=== PATIENT | female | born 1955 | race Caucasian/White ===

== ENCOUNTER 2016-06-27 10:05 | Emergency (ER) | payer OTHER, BC ==
[2016-06-27 10:17] VITALS: BMI 34.1
[2016-06-27] MEDS ORDERED: ONDANSETRON 4 MG/2 ML VIAL IVPB ONE (10:29)
[2016-06-27] MEDS ORDERED: ONDANSETRON 4 MG/2 ML VIAL ONE (10:29)
[2016-06-27 10:50] LABS: URINE BILIRUBIN Negative (NEGATIVE); URINE BLOOD Negative (NEGATIVE); URINE GLUCOSE (UA) Negative (NEGATIVE); URINE KETONE Negative (NEGATIVE); URINE NITRITE Negative (NEGATIVE); URINE PROTEIN Negative (NEGATIVE); URINE UROBILINOGEN 0.2 E.U/dl (0.2-1.0)
[2016-06-27 10:52] LABS: BASOPHIL 0.2 % (0-2.0); EOSINOPHIL 1.8 % (0-4.5); MCH 29.2 pg (25.7-33.7); MCHC 33.9 g/dl (32.0-36.0); MEAN CELL VOLUME 86.3 fl (80-96); MEAN PLT VOLUME 8.3 fl (7.5-11.1); NEUTROPHILS 63.9 % (42.8-82.8); PLATELET COUNT 177 K/MM3 (134-434); RDW 13.9 % (11.6-15.6); WHITE BLOOD COUNT 6.4 K/mm3 (4.0-10.0)
[2016-06-27 10:53] LABS: ALBUMIN 4.2 g/dl (3.5-5.0); ALK PHOS 80 U/L (32-92); ANION GAP 6 (8-16); BILIRUBIN,TOTAL 0.8 mg/dl (0.2-1.0); CALCIUM 10.4 mg/dl (8.4-10.2); CO2 22 mmol/L (22-28); CPK(DFH) 31 IU/L (26-140); CREATININE 0.8 mg/dl (0.6-1.3); GLUCOSE,RANDOM 111 mg/dl (74-106); SGOT/AST 27 U/L (10-42); SGPT/ALT 22 U/L (10-40); TOT PROT 7.8 g/dl (6.4-8.3)
[2016-06-27 10:56] LABS: URINE APPEARANCE SL CLOUDY; URINE COLOR YELLOW; URINE LEUK ESTERASE 1+ (NEGATIVE)
[2016-06-27] MEDS ORDERED: FAMOTIDINE 20 MG/50 ML IVPB 50 ML IVPB ONE ×2 (10:58→11:13)
[2016-06-27] MEDS ORDERED: ACETAMINOPHEN 325 MG TABLET (FP) PO ONE (10:58)
--- NOTE | 2016-06-27 11:06 | PDOC ---
History of Present Illness <Bonnie Mckeon - Last Filed: 06/27/16 16:57> - General History Source: Patient Exam Limitations: No Limitations - History of Present Illness Initial Comments: 06/27/16 10:59 CHIEF COMPLAINT: Abdominal pain HISTORY OF PRESENT ILLNESS: This is a 60-year-old woman who developed symptoms of nausea, vomiting and diarrhea on . She feels she got the stomach virus that was going around. Those symptoms lasted for 1 night, and then on Tuesday began to improve. Tuesday night into Tuesday she developed some upper abdominal pain radiating across the upper abdomen, intermittent, associated with nausea but no vomiting. She denies fever or chills. She denies any jaundice. She denies a history of pancreatitis or ulcer disease. REVIEW OF SYSTEMS: GENERAL/CONSTITUTIONAL: No fever or chills. No weakness. No weight change. HEAD, EYES, EARS, NOSE AND THROAT: No change in vision. No ear pain or discharge. No sore throat. Positive dry mouth. CARDIOVASCULAR: No chest pain or shortness of breath. RESPIRATORY: No cough, wheezing, or hemoptysis. GASTROINTESTINAL: Positive nausea, had vomiting on which has resolved, had diarrhea on which has also resolved. No rectal bleeding. GENITOURINARY: No dysuria, frequency, or change in urination. MUSCULOSKELETAL: No joint or muscle swelling or pain. No neck or back pain. SKIN AND BREASTS: No rash or easy bruising. NEUROLOGIC: No headache, vertigo, loss of consciousness, or loss of sensation. PSYCHIATRIC: No depression or anxiety. ENDOCRINE: No increased thirst. No abnormal weight change. HEMATOLOGIC/LYMPHATIC: No anemia, easy bleeding, or history of blood clots. ALLERGIC/IMMUNOLOGIC: No hives or skin allergy. No latex allergy. <Ander Rojas - Last Filed: 06/27/16 17:11> - General Chief Complaint: Pain Stated Complaint: RT UPPER ABD PAIN, VOMITING, DIARRHEA Time Seen by Provider: 06/27/16 10:23 Past History <Ruben Mckeonssica - Last Filed: 06/27/16 16:57> - Past Medical History Anemia: No Asthma: No Cancer: No Cardiac Disorders: No Hx Myocardial Infarction: No CVA: No COPD: No CHF: No Dementia: No Diabetes: No GI Disorders: Yes (GERD) Disorders: No HTN: Yes Hypercholesterolemia: Yes Liver Disease: No Seizures: No Thyroid Disease: No Other medical history: HEADACHES - Surgical History Abdominal Surgery: No Appendectomy: No Cardiac Surgery: No Cholecystectomy: No Lung Surgery: No Neurologic Surgery: No Orthopedic Surgery: Yes (lumbar spine surgery) - Psycho/Social/Smoking Cessation Hx Anxiety: No Suicidal Ideation: No Smoking Status: No Smoking History: Never smoked Have you smoked in the past 12 months: No Number of Cigarettes Smoked Daily: 0 Hx Alcohol Use: No Drug/Substance Use Hx: No Substance Use Type: None Hx Substance Use Treatment: No <Ander Rojas - Last Filed: 06/27/16 17:11> - Past Medical History Allergies/Adverse Reactions: Allergies Allergy/AdvReac Type Severity Reaction Status Date / Time codeine [Codeine] Allergy Intermediate Rash Verified 05/04/16 12:51 oxycodone Allergy Rash Verified 06/27/16 10:10 hydrochlorothiazide AdvReac Intermediate hypercalcem Verified 05/04/16 12:51 ia Home Medications: Ambulatory Orders Amlodipine Besylate 10 mg PO DAILY 06/27/16 Losartan Potassium 100 mg PO DAILY 06/27/16 Metoclopramide HCl 10 mg PO QID #20 tablet 06/27/16 Nebivolol HCl [Bystolic] 20 mg PO DAILY 06/27/16 Pitavastatin Calcium [Livalo] 1 mg PO DAILY 06/27/16 Spironolactone 25 mg PO DAILY 06/27/16 Topiramate 50 mg PO BID 06/27/16 *Physical Exam - Vital Signs Last Vital Signs Temp Pulse Resp BP Pulse Ox 97.7 F 77 18 155/92 97 06/27/16 10:05 06/27/16 10:05 06/27/16 10:05 06/27/16 10:05 06/27/16 10:05 <Bonnie Mckeon - Last Filed: 06/27/16 16:57> - Vital Signs Last Vital Signs Temp Pulse Resp BP Pulse Ox 97.7 F 77 18 155/92 97 06/27/16 10:05 06/27/16 10:05 06/27/16 10:05 06/27/16 10:05 06/27/16 10:05 - Physical Exam Comments: 06/27/16 11:07 GENERAL: The patient is awake, alert, and fully oriented, in no acute distress. HEAD: Normal with no signs of trauma. EYES: Pupils equal, round and reactive to light, extraocular movements intact, sclera anicteric, conjunctiva clear. ENT: Ears normal, nares patent, oropharynx clear without exudates. Moist mucous membranes. NECK: Normal range of motion, supple without lymphadenopathy, JVD, or masses. LUNGS: Breath sounds equal, clear to auscultation bilaterally. No wheezes, and no crackles. HEART: Regular rate and rhythm, normal S1 and S2 without murmur, rub or gallop. ABDOMEN: Mildly obese. Soft abdomen. Positive active bowel sounds. Mild tenderness on very deep palpation in the right upper quadrant. Negative Shanks sign. Negative McBurney's tenderness. No guarding. No rebound tenderness. EXTREMITIES: Normal range of motion, no edema. No clubbing or cyanosis. No cords, erythema, or tenderness. NEUROLOGICAL: Cranial nerves grossly intact. Normal speech, normal gait. PSYCH: Normal mood, normal affect. SKIN: Warm, Dry, normal turgor, no rashes or lesions noted. <Ander Rojas - Last Filed: 06/27/16 17:11> ED Treatment Course - LABORATORY CBC & Chemistry Diagram: 06/27/16 10:22 06/27/16 10:22 - ADDITIONAL ORDERS Additional order review: Laboratory Results 06/27/16 06/27/16 06/27/16 10:25 10:22 10:22 Sodium 136 Potassium 3.6 Chloride 108 H Carbon Dioxide 22 Anion Gap 6 L BUN 11 D Creatinine 0.8 Creat Clearance w eGFR > 60 Random Glucose 111 H Calcium 10.4 H Total Bilirubin 0.8 D AST 27 D ALT 22 D Alkaline Phosphatase 80 Creatine Kinase 31 Troponin I < 0.03 L Total Protein 7.8 Albumin 4.2 Lipase 29 Urine Color Yellow Urine Appearance Sl cloudy Urine pH 5.0 D Ur Specific Hardy 1.020 Urine Protein Negative Urine Glucose (UA) Negative Urine Ketones Negative Urine Blood Negative Urine Nitrite Negative Urine Bilirubin Negative Urine Urobilinogen 0.2 e.u/dl Ur Leukocyte Esterase 1+ H Urine RBC 0-2 Urine WBC 1-3 Ur Epithelial Cells Few Calcium Oxalate Crystal Few Urine Bacteria Many 06/27/16 10:22 RBC 5.14 MCV 86.3 MCHC 33.9 RDW 13.9 MPV 8.3 Neutrophils % 63.9 Lymphocytes % 22.0 Monocytes % 12.1 H Eosinophils % 1.8 Basophils % 0.2 - RADIOLOGY Radiograph Interpretation: 06/27/16 16:57 EXAM#: TYPE/EXAM: RESULT: [id number] CT/ABDOMEN PELVIS CT WITH CONTR History of abdominal pain. CT scan of the abdomen and pelvis following oral and intravenous contrast. Coronal and sagittal reformatted images were obtained 90 cc of Omnipaque 350 was intravenously injected Comparison: None available There is a 4 mm calcified nodule in the left lung base, laterally compatible with a granuloma. The heart is within normal limits in size. A small hiatus hernia is present. The stomach is not distended limiting evaluation of its wall. Evaluation of the liver, spleen, gallbladder, pancreas, both adrenal glands and both kidneys appear unremarkable except for a partially exophytic right renal lower pole cyst measuring 3.3 cm and an adjacent tiny cyst measuring 5 mm. There is no evidence of small bowel obstruction. There is in adequate distention with suggestion of thickening of the descending portion of the duodenum and questionable mild haziness of the surrounding mesentery. No enlarged retroperitoneal lymph nodes are present. No free air or free fluid in the abdomen pelvis. Notes made of a tiny fat-containing umbilical hernia Normal stool burden in the colon. Collapsed sigmoid colon with a few diverticula distally and without evidence of acute diverticulitis. There are also a couple of diverticula in the distal descending colon. Uterus is within normal limits in size. Partially distended urinary bladder without thickening of its wall. A small fat-containing umbilical hernia is present. Posterior fusion of L4 and L5 vertebral bodies with an interbody spacer. There is very minimal anterolisthesis of L4 over L5. Moderate thinning of L2-L3 intervertebral disc space IMPRESSION: Tiny calcified granuloma in the left lung base. A few colonic diverticula without evidence of acute diverticulitis. Inadequate distention with suggestion of thickening of the descending portion of the duodenum and with mild haziness of the surrounding mesentery suspicious for duodenitis, inflammatory versus infectious versus infiltrative. Further evaluation is needed. Case discussed with Dr. Rojas, caring emergency room attending physician at [place]. Reported By: Devaughn Cueva MD 06/27/16 9037 - Medications Given in the ED: ED Medications Discontinued Medications Generic Name Dose Route Start Last Admin Trade Name Freq PRN Reason Stop Dose Admin Acetaminophen 650 mg 06/27/16 10:58 06/27/16 11:20 Tylenol - PO 06/27/16 10:59 650 mg ONCE ONE Administration Hydromorphone HCl 0.5 mg 06/27/16 11:51 06/27/16 11:55 Dilaudid Injection - IVPUSH 06/27/16 11:52 0.5 mg ONCE ONE Administration Famotidine/Sodium Chloride 50 mls @ 100 mls/hr 06/27/16 10:58 06/27/16 11:20 Pepcid 20 Mg Premixed Ivpb - IVPB 06/27/16 11:27 100 mls/hr ONCE ONE Administration Ondansetron HCl 4 mg 06/27/16 10:29 06/27/16 10:38 Zofran Injection IVPB 06/27/16 10:30 4 mg ONCE ONE Administration <Bonnie Mckeon - Last Filed: 06/27/16 16:57> - LABORATORY CBC & Chemistry Diagram: 06/27/16 10:22 06/27/16 10:22 - ADDITIONAL ORDERS Additional order review: Laboratory Results 06/27/16 06/27/16 06/27/16 10:25 10:22 10:22 Sodium 136 Potassium 3.6 Chloride 108 H Carbon Dioxide 22 Anion Gap 6 L BUN 11 D Creatinine 0.8 Creat Clearance w eGFR > 60 Random Glucose 111 H Calcium 10.4 H Total Bilirubin 0.8 D AST 27 D ALT 22 D Alkaline Phosphatase 80 Creatine Kinase 31 Total Protein 7.8 Albumin 4.2 Lipase 29 Urine Color Yellow Urine Appearance Sl cloudy Urine pH 5.0 D Ur Specific Hardy 1.020 Urine Protein Negative Urine Glucose (UA) Negative Urine Ketones Negative Urine Blood Negative Urine Nitrite Negative Urine Bilirubin Negative Urine Urobilinogen 0.2 e.u/dl Ur Leukocyte Esterase 1+ H 06/27/16 10:22 RBC 5.14 MCV 86.3 MCHC 33.9 RDW 13.9 MPV 8.3 Neutrophils % 63.9 Lymphocytes % 22.0 Monocytes % 12.1 H Eosinophils % 1.8 Basophils % 0.2 - RADIOLOGY Radiology Studies Ordered: Category Date Time Status ABDOMEN & PELVIS CT WITH CONTR [CT] Stat CT Scan 06/27/16 10:56 Ordered - Medications Given in the ED: ED Medications Discontinued Medications Generic Name Dose Route Start Last Admin Trade Name Freq PRN Reason Stop Dose Admin Ondansetron HCl 4 mg 06/27/16 10:29 06/27/16 10:38 Zofran Injection IVPB 06/27/16 10:30 4 mg ONCE ONE Administration <Ander Rojas - Last Filed: 06/27/16 17:11> Medical Decision Making - Medical Decision Making 06/27/16 17:03 Patient presented with nonspecific abdominal pain after symptoms consistent with viral gastroenteritis a few days ago. Today she has intermittent cramping across the upper abdomen. Her abdominal exam has mild tenderness on deep palpation, but is mostly benign. CT scan of the abdomen and pelvis was performed to assure no acute pathology. There was questionable mild duodenal thickening consistent with possible duodenitis, but otherwise no acute findings. CT scan reviewed by me and read by Dr. Cueva. Laboratory workup reviewed. WBC is normal. Urinalysis with 1+ leukocyte esterase, but no pyuria. Patient without urinary symptoms. Doubt urinary tract infection. Electrolytes essentially unremarkable. No significant dehydration. Patient is hungry, tolerating oral intake, repeat abdominal examination is soft and nontender. Impression: Probable resolving gastroenteritis from a few days ago. Benign abdominal examination. Patient is tolerating oral intake and is stable for discharge. Laboratory Results - last 24 hr 06/27/16 06/27/16 06/27/16 10:22 10:22 10:22 WBC 6.4 RBC 5.14 Hgb 15.0 Hct 44.4 MCV 86.3 MCHC 33.9 RDW 13.9 Plt Count 177 MPV 8.3 Neutrophils % 63.9 Lymphocytes % 22.0 Monocytes % 12.1 H Eosinophils % 1.8 Basophils % 0.2 Sodium 136 Potassium 3.6 Chloride 108 H Carbon Dioxide 22 Anion Gap 6 L BUN 11 D Creatinine 0.8 Creat Clearance w eGFR > 60 Random Glucose 111 H Calcium 10.4 H Total Bilirubin 0.8 D AST 27 D ALT 22 D Alkaline Phosphatase 80 Creatine Kinase 31 Troponin I < 0.03 L Total Protein 7.8 Albumin 4.2 Lipase 29 Urine Color Urine Appearance Urine pH Ur Specific Hardy Urine Protein Urine Glucose (UA) Urine Ketones Urine Blood Urine Nitrite Urine Bilirubin Urine Urobilinogen Ur Leukocyte Esterase Urine RBC Urine WBC Ur Epithelial Cells Calcium Oxalate Crystal Urine Bacteria 06/27/16 10:25 WBC RBC Hgb Hct MCV MCHC RDW Plt Count MPV Neutrophils % Lymphocytes % Monocytes % Eosinophils % Basophils % Sodium Potassium Chloride Carbon Dioxide Anion Gap BUN Creatinine Creat Clearance w eGFR Random Glucose Calcium Total Bilirubin AST ALT Alkaline Phosphatase Creatine Kinase Troponin I Total Protein Albumin Lipase Urine Color Yellow Urine Appearance Sl cloudy Urine pH 5.0 D Ur Specific Hardy 1.020 Urine Protein Negative Urine Glucose (UA) Negative Urine Ketones Negative Urine Blood Negative Urine Nitrite Negative Urine Bilirubin Negative Urine Urobilinogen 0.2 e.u/dl Ur Leukocyte Esterase 1+ H Urine RBC 0-2 Urine WBC 1-3 Ur Epithelial Cells Few Calcium Oxalate Crystal Few Urine Bacteria Many 06/27/16 17:09 The scribe's documentation has been prepared under my direction and personally reviewed by me in its entirety. I have confirmed that the note above accurately reflects all work, treatment, procedures, and medical decision- making performed by me. <Ander Rojas - Last Filed: 06/27/16 17:11> *DC/Admit/Observation/Transfer <Bonnie Mckeon - Last Filed: 06/27/16 16:57> - Discharge Dispostion Admit: No <Ander Rojas - Last Filed: 06/27/16 17:11> Diagnosis at time of Disposition: Acute gastroenteritis - Discharge Dispostion Condition at time of disposition: Stable - Prescriptions Prescriptions: Metoclopramide HCl 10 mg PO QID #20 tablet - Referrals Referrals: Samuel Eid MD [Primary Care Provider] - - Patient Instructions Printed Discharge Instructions: DI for Viral Gastroenteritis -- Adult Additional Instructions: Today you were evaluated for stomach pain and nausea. The CAT scan shows no significant abnormalities. The blood tests were normal. The urine test was normal. Take metoclopramide if needed for nausea. Follow-up with your primary care physician. Return to the emergency department for any severe or progressive symptoms.
[2016-06-27 11:12] LABS: TROPONIN I (DFP) < 0.03 ng/ml (0.03-0.50)
[2016-06-27] MEDS ORDERED: ACETAMINOPHEN 325 MG TABLET (FP) ONE (11:13)
--- NOTE | 2016-06-27 11:29 | EKG ---
Test Reason : Blood Pressure : / mmHG Vent. Rate : 066 BPM Atrial Rate : 066 BPM P-R Int : 180 ms QRS Dur : 074 ms QT Int : 396 ms P-R-T Axes : 052 015 045 degrees QTc Int : 415 ms NORMAL SINUS RHYTHM WITH SINUS ARRHYTHMIA NORMAL ECG WHEN COMPARED WITH ECG OF 21-MAR-2003 15:02, T WAVE INVERSION NOW EVIDENT IN ANTERIOR LEADS Confirmed by MIKA BURNETTE, ROMA ([id number]) on 06/27/2016 11:29:17 AM Referred By: KATHERYN CASTELLANO Confirmed By:ROMA BRENNAN MD
[2016-06-27 11:33] LABS: CALCIUM OXALATE CRYSTALS FEW /hpf (NONE SEEN); URINE BACTERIA MANY /hpf (NEGATIVE); URINE RBC 0-2 /hpf (0-3)
[2016-06-27] MEDS ORDERED: HYDROmorphone HCL CARPU-JECT 1 MG/1 ML DISP.SYRIN IVPUSH ONE (11:51)
[2016-06-27] MEDS ORDERED: HYDROmorphone HCL CARPU-JECT 2 MG/1 ML DISP.SYRIN ONE (11:52)
[2016-06-27 16:58] VITALS: BP 144/96; PULSE 66; TEMP 97.8
== END 2016-06-27 17:15 | disposition home or self-care (01) ==
LOC: FER 10:05
PROC: 3E033GC Introduction of Other Therapeutic Substance into Peripheral Vein, Percutaneous Approach (ICD-10-PCS; principal; 2016-06-27)
PROC: 3E033NZ Introduction of Analgesics, Hypnotics, Sedatives into Peripheral Vein, Percutaneous Approach (ICD-10-PCS; 2016-06-27)
DX: K52.9 Noninfective gastroenteritis and colitis, unspecified (principal); K21.9 Gastro-esophageal reflux disease without esophagitis; I10 Essential (primary) hypertension; E78.00 Pure hypercholesterolemia, unspecified
CPT/HCPCS: 36415; 74177-TC; 80053; 81003; 81015; 82550; 83690; 84484; 85025; 93005; 99285-25

== ENCOUNTER 2019-01-01 10:44 | Day surgery (SDC) | payer OTHER ==
[2018-12-28 10:03] VITALS: BMI 38.7
[2019-01-01 11:03] VITALS: TEMP 98.7
[2019-01-01 12:49] VITALS: BP 130/62; PULSE 66
--- NOTE | 2019-01-04 14:19 | PATH ---
Surgical Pathology Report Patient Name: FRANCISCA LEE [facility]. Rec. #: [id number] /Age/Gender: 1955 (Age: 63) / F Account: [id number] Location: [facility] Taken: 01/01/2019 Received: 01/01/2019 Reported: 01/04/2019 Physicians: Kalia Tocsano M.D. Specimen(s) Received A: SECOND PORTION DUODENUM B: ANTRUM C: POLYP CECUM Clinical History GERD, screening Postoperative diagnosis: Gastritis, small hiatal hernia Final Diagnosis A. SECOND PORTION OF DUODENUM, BIOPSY: DUODENAL MUCOSA WITH NO PATHOLOGIC FINDINGS. B. GASTRIC ANTRUM, BIOPSY: MILD CHRONIC GASTRITIS. IMMUNOSTAIN IS NEGATIVE FOR H. PYLORI ORGANISMS. C. CECUM, POLYP, BIOPSY: TUBULAR ADENOMA. Electronically Signed Xiomara Hernández M.D. Gross Description A. Received in formalin, labeled "biopsy second portion of duodenum" are 3 gibbons, irregular portions of soft tissue ranging from 0.1-0.5 cm. in greatest dimension. The specimens are submitted in toto in one cassette. B. Received in formalin, labeled "biopsy gastric antrum" are 2 gibbons, irregular portions of soft tissue measuring 0.4 and 0.5 cm. in greatest dimension. The specimens are submitted in toto in one cassette. C. Received in formalin, labeled "biopsy polyp cecum" is a gibbons, irregular portion of soft tissue measuring 0.7 cm. in greatest dimension. The specimen is submitted in toto in one cassette. 01/02/2019 saudi01/02/2019
== END 2019-01-01 13:00 | disposition home or self-care (01) ==
LOC: FASU-ENDO 10:44
PROVIDERS: ATTEND Internal Medicine Gastroenterology
PROC: 0DB98ZX Excision of Duodenum, Via Natural or Artificial Opening Endoscopic, Diagnostic (ICD-10-PCS; 2019-01-01)
PROC: 0DB68ZX Excision of Stomach, Via Natural or Artificial Opening Endoscopic, Diagnostic (ICD-10-PCS; 2019-01-01)
PROC: 0DBH8ZX Excision of Cecum, Via Natural or Artificial Opening Endoscopic, Diagnostic (ICD-10-PCS; principal; 2019-01-01 11:57)
DX: Z12.11 Encounter for screening for malignant neoplasm of colon (principal); D12.0 Benign neoplasm of cecum; K29.50 Unspecified chronic gastritis without bleeding; K44.9 Diaphragmatic hernia without obstruction or gangrene
CPT/HCPCS: 88305-TC; 88342-TC

== ENCOUNTER 2022-04-17 06:07 | Emergency (ER) | payer OTHER ==
[2022-04-17 06:19] VITALS: TEMP 98.3; BMI 39.0
[2022-04-17 07:53] VITALS: RESP 16
[2022-04-17 08:23] LABS: HEMOGLOBIN 15.3 G/dL (10.7-15.3); INR 1.02 (0.83-1.09); MCHC 34.8 g/dl (32.0-36.0); MEAN CELL VOLUME 89.1 fl (80-96); MEAN PLT VOLUME 8.7 fl (7.5-11.1); PLATELET COUNT 182.8 10^3/uL (134-434); PROTHROMBIN TIME (PATIENT) 11.7 SEC (9.7-13.0); RBC 4.94 10^6/uL (3.60-5.2); RDW 14.5 % (11.6-15.6); WHITE BLOOD COUNT 6.6 10^3/uL (4.0-10.8)
[2022-04-17 08:30] LABS: ALBUMIN 3.8 g/dl (3.4-5.0); BILIRUBIN,TOTAL 0.6 mg/dl (0.2-1); CALCIUM 10.2 mg/dl (8.5-10); CREATININE 0.7 mg/dl (0.55-1.3); TOT PROT 7.1 g/dl (6.4-8.2)
[2022-04-17 08:44] LABS: PLATELET ESTIMATE ADEQUATE
[2022-04-17] MEDS ORDERED: APIXABAN 5 MG TABLET PO ONE (09:19)
[2022-04-17 09:39] VITALS: BP 149/100; PULSE 78
== END 2022-04-17 09:47 | disposition home or self-care (01) ==
LOC: FER 06:07
DX: I48.20 Chronic atrial fibrillation, unspecified (principal); I10 Essential (primary) hypertension
CPT/HCPCS: 36415; 80053; 81003; 84484; 85027; 85610; 93005; 99284-25